=== PATIENT | female | born 1965 | race Caucasian/White ===

== ENCOUNTER → 2016-11-02 | Outpatient (CLI) | payer OTHER ==
[~2016-11-02] MED LIST: ADVIN50/60 INH; CHOL2000 PO; DEXT30TA7 PO; FEXO1TAB49 PO; IBUP-1050 PO; IPRASOL4 INH; MOME50SP5; MONT1TAB3 PO; MULTTAB58 PO; PREG1CAP28 PO; PSEU30TA20 PO
--- NOTE | 2016-11-02 09:43 | DIAGNOSTIC IMAGING REPORT ---
RIGHT FOOT MIN 3 VIEWS ROUTINE CLINICAL HISTORY: Right foot pain COMPARISON: None. DISCUSSION: There is an equivocal age-indeterminate fracture of the distal phalanx the fifth toe. There are no dislocations. There are no other findings of significance. IMPRESSION: Equivocal age-indeterminate fracture of the distal phalanx of the fifth toe Electronically signed by: Storm Joiner M.D. 11/02/2016 9:42 AM Dictated Date/Time: 11/02/2016 9:39 AM
== END | disposition home or self-care (01) ==
LOC: C.RADPV 09:25
PROVIDERS: ATTEND Neuromusculoskeletal Medicine & OMM
DX: S92.531A Displaced fracture of distal phalanx of right lesser toe(s), initial encounter for closed fracture (principal); X58.XXXA Exposure to other specified factors, initial encounter

== ENCOUNTER → 2017-01-06 | Outpatient (CLI) | payer OTHER | END | disposition home or self-care (01) | LOC: C.LABPVFM 07:54 | PROVIDERS: ATTEND Nurse Practitioner | DX: Z13.220 Encounter for screening for lipoid disorders (principal); Z13.1 Encounter for screening for diabetes mellitus ==

== ENCOUNTER → 2017-01-07 | Outpatient (CLI) | payer OTHER ==
--- NOTE | 2017-01-07 14:06 | MAMMOGRAPHY REPORT ---
BILATERAL DIGITAL SCREENING MAMMOGRAM TOMOSYNTHESIS WITH CAD: 01/07/2017 CLINICAL HISTORY: Routine screening. Patient has no complaints. TECHNIQUE: Breast tomosynthesis in addition to standard 2D mammography was performed. Current study was also evaluated with a Computer Aided Detection (CAD) system. COMPARISON: Comparison is made to exams dated: 12/18/2015 mammogram, 06/06/2014 ultrasound, 12/12/2014 mammogram, 06/06/2014 mammogram, 10/31/2013 mammogram, and 10/27/2012 mammogram - [facility] enter. BREAST COMPOSITION: The tissue of both breasts is extremely dense, which lowers the sensitivity of m ammography. FINDINGS: No suspicious masses, calcifications, or areas of architectural distortion are noted in ei ther breast. There has been no significant interval change compared to prior exams. IMPRESSION: ACR BI-RADS CATEGORY 1: NEGATIVE There is no mammographic evidence of malignancy. A 1 year screening mammogram is recommended. The pa tient will receive written notification of the results. Approximately 10% of breast cancers are not detected with mammography. A negative mammographic report should not delay biopsy if a clinically suggestive mass is present. Evon Veronica M.D. ah/:01/07/2017 12:50:50 [employer]ire Debeader: Mariana POONR, M, [facility] letter sent: Normal 1/2 BI-RADS Code: ACR BI-RADS Category 1: Negative
== END | disposition home or self-care (01) ==
LOC: C.MAMM 11:21
PROVIDERS: ATTEND Surgery
DX: Z12.31 Encounter for screening mammogram for malignant neoplasm of breast (principal)

== ENCOUNTER → 2017-03-19 | Outpatient (CLI) | payer OTHER ==
[2017-03-19 17:27] LABS: BASO % 0.5 %; BASO ABS # 0.03 K/uL (0-0.2); COMPLETE YES; HEMATOCRIT 40.6 % (37-47); IG% 0.2 %; LYMPH % 36.1 %; LYMPH ABS # 2.16 K/uL (1.2-3.4); MEAN CELL VOLUME 86.6 fL (80-100); MEAN CORPUSCULAR HGB CONC 33.5 g/dl (32-36); MEAN PLATELET VOLUME 11.7 fL (7.4-10.4); MONO % 10.7 %; NEUT % 50.5 %; PLATELET COUNT 170 K/uL (130-400); RED BLOOD COUNT 4.69 M/uL (4.2-5.4); WHITE BLOOD COUNT 5.98 K/uL (4.8-10.8)
[2017-03-19 17:36] LABS: BLOOD UREA NITROGEN 16 mg/dl (7-18); BUN/CREATININE RATIO 20.7 (10-20); CALCIUM 8.7 mg/dl (8.5-10.1); CARBON DIOXIDE 30 mmol/L (21-32); CHLORIDE 108 mmol/L (98-107); CREATININE 0.79 mg/dl (0.60-1.20); GLUCOSE 104 mg/dl (70-99); POTASSIUM 3.6 mmol/L (3.5-5.1); SODIUM 144 mmol/L (136-145)
== END | disposition home or self-care (01) ==
LOC: C.LABPVFM 12:32
PROVIDERS: ATTEND Nurse Practitioner Family
DX: R10.31 Right lower quadrant pain (principal)

== ENCOUNTER → 2017-03-22 | Outpatient (CLI) | payer OTHER ==
--- NOTE | 2017-03-22 16:40 | DIAGNOSTIC IMAGING REPORT ---
ABDOMEN LIMITED (US) HISTORY: Pain R10.31 Abdominal pain, RLQ (right lower quadrant)attn. Appendix. COMPARISON: None. FINDINGS: Attention to the right lower quadrant does not identify the appendix. No localized collection is appreciated. IMPRESSION: Nondiagnostic study of the appendix The above report was generated using voice recognition software. It may contain grammatical, syntax or spelling errors. Electronically signed by: Jose Zhu M.D. 03/22/2017 4:39 PM Dictated Date/Time: 03/22/2017 4:38 PM
== END | disposition home or self-care (01) ==
LOC: C.ULTR 14:58
PROVIDERS: ATTEND Nurse Practitioner Family
DX: R10.31 Right lower quadrant pain (principal)

== ENCOUNTER → 2017-05-20 | Outpatient (CLI) | payer OTHER ==
--- NOTE | 2017-05-20 13:48 | MAMMOGRAPHY REPORT ---
ULTRASOUND OF RIGHT BREAST: 05/20/2017 CLINICAL HISTORY: The patient reports a palpable lump in her right axillary region since last week. She notes that it may possibly be smaller in size than when she first felt it. She denies any associ ated skin erythema, significant pain, or other complaints. COMPARISON: Comparison is made to exams dated: 01/07/2017 mammogram, 12/18/2015 mammogram, 12/12/2014 m ammogram, 06/06/2014 ultrasound, and 10/31/2013 mammogram - [facility]. TECHNIQUE: Real-time targeted ultrasound of the right axilla was performed. FINDINGS: Real-time, high resolution targeted ultrasound was performed of the area of the palpable l ump pointed out by the patient in the right axillary region. The patient could not pinpoint the exac t location of the lump but pointed to the general region. Ultrasound of this region demonstrates no suspicious masses or other suspicious sonographic abnormalities. Morphologically normal right axilla ry lymph nodes were seen during the exam, without evidence of axillary adenopathy. IMPRESSION: ACR BI-RADS CATEGORY 2: BENIGN No suspicious mass or other sonographic abnormality at the site of the palpable right axillary lump. There is no sonographic evidence of malignancy. Recommend clinical follow-up for the palpable axill sri lump; any decision to biopsy should be based on clinical grounds. Also recommend routine bilater al screening mammograms which are due December 2017. The patient was verbally notified of the results. Evno Veronica M.D. ah/:05/20/2017 09:57:11 Attending Technologist: Andre POON(R)(M), [facility] Government Instructor: Evon Veronica MD, [facility] letter sent: Normal 1/2 BI-RADS Code: ACR BI-RADS Category 2: Benign
== END | disposition home or self-care (01) ==
LOC: C.MAMM 09:23
PROVIDERS: ATTEND Nurse Practitioner Family
DX: N63.10 Unspecified lump in the right breast, unspecified quadrant (principal)

== ENCOUNTER → 2017-08-30 | Outpatient (CLI) | payer OTHER ==
--- NOTE | 2017-08-30 11:24 | DIAGNOSTIC IMAGING REPORT ---
CHEST 2 VIEWS ROUTINE CLINICAL HISTORY: Asthma. Persistent cough. COMPARISON STUDY: Chest radiograph August 19, 2014. FINDINGS: Lung volumes are normal. No pneumothorax or pleural effusion is noted. There is no consolidation or evidence for pulmonary edema. Cardiomediastinal silhouette is normal. Mild asymmetric right apical opacity reflects scarring. This is unchanged. IMPRESSION: No acute cardiopulmonary findings. Electronically signed by: Thiago Arias M.D. 08/30/2017 11:22 AM Dictated Date/Time: 08/30/2017 11:21 AM
== END | disposition home or self-care (01) ==
LOC: C.RADPV 10:45
PROVIDERS: ATTEND Nurse Practitioner
DX: J45.909 Unspecified asthma, uncomplicated (principal); R05 Cough

== ENCOUNTER → 2017-09-29 | Outpatient (CLI) | payer OTHER | END | disposition home or self-care (01) | LOC: C.LABPVFM 08:36 | PROVIDERS: ATTEND Nurse Practitioner Family | DX: Z13.220 Encounter for screening for lipoid disorders (principal); Z13.1 Encounter for screening for diabetes mellitus ==

== ENCOUNTER 2019-01-13 09:30 | Inpatient (IN) ==
[2019-01-13] MEDS ORDERED: METOCLOPRAMIDE HCL INJ 5 MG/ML 2 ML VIAL IV PRN ×2 (11:53→18:06)
[2019-01-13] MEDS ORDERED: MoRPHine SULFATE 2 MG/ML CARP IV PRN (12:03)
[2019-01-13] MEDS ORDERED: FEXOFENADINE HCL 180 MG TAB PO PRN (12:04)
[2019-01-13] MEDS ORDERED: ALBUTEROL 0.083% NEBU SOLN 3 ML VIAL INH PRN (12:04)
[2019-01-13] MEDS ORDERED: LORATADINE 10 MG TAB PO PRN (12:04)
[2019-01-13] MEDS ORDERED: MONTELUKAST SODIUM 10 MG TABLET PO PRN (12:04)
[2019-01-13] MEDS ORDERED: METHOCARBAMOL 750 MG TABLET PO PRN (12:04)
[2019-01-13] MEDS ORDERED: ALBUT/IPRATROP 3MG/0.5MG NEB 3 ML VIAL INH PRN (12:04)
[2019-01-13] MEDS ORDERED: FLUTICASONE/SALMETEROL (ADVAIR) 500/50 INH 14 PUFF INH PRN (12:04)
[2019-01-13] MEDS ORDERED: BROMELAINS 500 MG PO SCH (12:15)
--- NOTE | 2019-01-13 12:30 | History & Physical Report ---
Date of Service January 13, 2019 Assessment & Plan (1) Cat bite: Patient appears to have an abscess of her right hand from a cat bite 4 days ago. Surgical intervention was recommended. She does agree to proceed with surgery and is scheduled for an incision and drainage of her right hand lee Cole [facility] on January 13, 2019. She did have breakfast this morning but has been instructed to be nothing by mouth. We will obtain an EKG upon her admission at the hospital.Risks and complications of the procedure were extended the patient and include but are not limited to infection, pain, bleeding, scarring, nerve and blood vessel damage, wound problems, weakness, stiffness, incomplete relief of symptoms, recurrent procedures, blood clots, embolisms, heart attack, stroke and . All questions were answered and informed consent was obtained. She does not need any preoperative medical clearance. A well-padded splint was applied to her right upper extremity. Encouraged ice and elevation. No use of her right hand. She will be admitted and started on IV antibiotics. Surgery will be later today. All questions were answered. Present on Admission?: Yes History of Present Illness Chief Complaint: right hand pain x 4 days Primary Care Provider: Dr. Tammy Thayer Patient is a 53-year-old female who is here today to see Dr. Ingram with complaints of right hand pain and swelling. She was bitten by Her own cat on January 09, 2019. She states her right hand has progressively gotten more painful and red and swollen since that day. She is right-hand dominant. She denies any previous problems or injuries to her right hand. She was scheduled for deep tissue breast reconstruction yesterday with her plastic surgeon due to the looks of her right hand he decided to postpone surgery and recommended her seeing an orthopedic surgeon. She called him is scheduled for an appointment today. She did get some IV Unasyn from them yesterday. She is also been taking by mouth Bactrim and Augmentin. She states she continues staff pain and swelling. She describes her pain as a burning type pain. She states that 10/10. She is pain with any type of movement of her fingers. She said that they have her redness was traveling up her wrist and forearm but that has gotten improved since the antibiotics. She has been icing and elevating. She denies any other injuries except that she has a couple scratches on her left hand from her cat as well. They are not symptomatic at this time. She was seen and evaluated today by our surgeons and an urgent incision and drainage was recommended. She will be admitted to [facility] and plan for incision and drainage of her right hand abscess with Dr. Cole this afternoon. Allergies Allergy/AdvReac Type Severity Reaction Status Date / Time Cipro Allergy Unknown HIVES Verified 07/20/15 08:52 ciprofloxacin Allergy Unknown HIVES Verified 01/10/19 10:51 Penicillins Allergy Unknown Hives Verified 01/10/19 10:51 pollen extracts Allergy Unknown "SEASONAL Verified 01/10/19 10:51 ALLERGIES" Quinolones Allergy Unknown PER DR Verified 01/10/19 10:51 BARTER,HAS TAKEN LEVAQUIN W/O PROBLEM doxycycline AdvReac Verified 01/10/19 10:51 Home Medications Home Medications Medication Instructions Recorded Confirmed Type cholecalciferol (vitamin D3) 2,000 unit PO QPM 03/31/18 01/10/19 History dextromethorphan-guaifenesin 1 tab PO Q12H PRN 03/31/18 01/10/19 History [Mucinex DM] fexofenadine [Ryanne Allergy] 180 mg PO DAILY PRN 03/31/18 01/10/19 History ibuprofen 800 mg PO Q8H PRN #30 tab 03/31/18 01/10/19 Rx ipratropium-albuterol 3 ml INHALATION QID PRN 03/31/18 01/10/19 History methocarbamol 750 mg PO QPM PRN 03/31/18 01/10/19 History montelukast [Singulair] 10 mg PO PM PRN 03/31/18 01/10/19 History albuterol sulfate 2.5 mg/3 mL 2.5 mg INH .COMPLEX PRN #75 ml 12/15/18 01/10/19 Rx (0.083 %) solution for nebulization albuterol sulfate 90 mcg/actuation 1 puffs INH .COMPLEX #1 ea 12/15/18 01/10/19 Rx breath activated powder inhaler ascorbate calcium (vitamin C) 500 500 mg PO DAILY #30 tab 12/15/18 01/10/19 Rx mg tablet clindamycin phosphate 1 % topical 1 appln TOP DAILY #30 ml 12/15/18 01/10/19 Rx solution fluticasone 500 mcg-salmeterol 50 1 puffs INH BID PRN #14 ea 12/15/18 01/10/19 Rx mcg/dose blistr powdr for inhalation gabapentin 300 mg capsule 300 mg PO TID #90 cap 12/15/18 01/10/19 Rx loratadine 10 mg tablet 10 mg PO DAILY PRN #30 tab 12/15/18 01/10/19 Rx multivitamin tablet 1 tab PO DAILY #30 tab 12/15/18 01/10/19 Rx bromelains 500 mg tablet 500 mg PO .COMPLEX 12/16/18 01/10/19 History vitamin A 8,000 unit capsule 8,000 units PO DAILY 12/16/18 01/10/19 History amoxicillin 875 mg-potassium 1 tab PO Q12H #20 tab 01/10/19 01/10/19 Rx clavulanate 125 mg tablet miconazole nitrate [Monistat 7] VAGINAL DAILY 01/13/19 History mupirocin 1 applic TOPICAL BID 01/13/19 01/13/19 History sulfamethoxazole-trimethoprim 1 tab PO Q12H 01/13/19 01/13/19 History [Bactrim DS] Past Med/Surg History Medical History [place] teeth extracted H/O: hysterectomy Bronchospasm with bronchitis, acute (Acute) Headache (Acute) Otalgia of left ear (Acute) URI (upper respiratory infection) (Acute) Acne Asthma Auditory processing disorder BRCA2 gene mutation positive Bronchitis Fibromyalgia 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 Meniere's disease Optic neuritis Osteoarthritis Pneumonia Syringomyelia Surgical History S/P discectomy S/P spinal surgery H/O arthroscopic knee surgery H/O bilateral mastectomy H/O inguinal hernia repair H/O laparoscopy H/O umbilical hernia repair History of mandibular surgery Social History Preferred Language: Greek current occupational status: employed Feels Safe at Home: Yes Smoking Status: Never smoker Review of Systems Constitutional: no fever, no chills, no sweats, no weight loss and no weight gain Eyes: no blind spots, no dry eyes and no itchy eyes Ear, Nose, Mouth, Throat: + dizziness; no ear pain, no tinnitus, no hearing loss, no facial pain, no sinus pain/pressure, no dental pain and no sore throat Respiratory: no cough, no dyspnea, no dyspnea on exertion and no wheezing Cardiovascular: + chest pain (2 episodes of mild chest pain this morning; lasted for seconds, resolved at this time, things it's from her "spacer shifting". ) and + edema (right hand); no chest pain with activity, no radiating jaw, neck or arm pain, no palpitations, no lightheadedness, no syncope and no calf pain Gastrointestinal: + nausea (from pain) and + diarrhea/loose stools (from antibiotic usage); no abdominal pain, no vomiting, no pain with swallowing and no constipation Genitourinary: + vaginal discharge (current vaginal yeast infection), + vaginal odor and + vaginal itching; no dysuria, no difficulty urinating, no urinary frequency, no urinary hesitancy and no urinary incontinence Musculoskeletal: + joint pain and + swelling (right hand); no back pain, no radicular pain and no deformity Integumentary: + skin swelling Neurologic: no gait abnormality, no unsteadiness, no tingling, no numbness and no headache(s) Endocrine: no cold intolerance and no heat intolerance Hematologic / Lymphatic: no easy bleeding, no easy bruising, no coagulopathy and no lymphadenopathy Physical Exam Musculoskeletal: Head/Neck/Chest: normocephalic, head atraumatic and neck supple Extremities: strength 5/5 throughout; no muscle atrophy Gait: normal gait She has 2 puncture bui, one in between her third and fourth fingers and at the base in between of her second and third metacarpals. She is localized edema and erythema. She is point tender with palpation. She has no pain with palpation of the DIP or PIP joints. She does have pain with flexion and extension of her right hand. She tolerates gentle range of motion of her right wrist. Distal sensation is normal. Distal pulses are 2+. She is nontender throughout her forearm. She has full pronation and supination and elbow flexion and extension. She has multiple ink bui on her right upper extremity and wear she was marking the redness. It has regressed since her last marking yesterday. She has point tenderness and some fluctuance the dorsum of her hand between the second and third metacarpals suggested an abscess. Skin: no rashes, warm and dry + skin tightening and + wound (To cat bite puncture wounds); no subcutaneous nodules Trauma: + evidence of skin trauma; no laceration, no contusion and no hematoma Neurologic: PERRL, EOMI, accommodation nl, no face palsy, no dysarthria Psychiatric: A+Ox3, euthymic affect Lymphatic: no lymphadenopathy, no lymphedema, no cervical lymphadenopathy and no axillary lymphadenopathy Results & Data Vital Signs (Past 12 Hours) Temperature 36.9 Blood pressure 118/74 Pulse 87 Oxygenation on room air 97% Pain score 10/10 Height 169.8 cm Weight 85.3 kg Diagnostic Findings Radiology images: 3 views of her right hand AP, oblique and lateral view show evidence of soft tissue swelling. There is no bony abnormality or evidence of foreign body. Code Status & VTE Plan VTE Prophylaxis Plan VTE Prophylaxis will be ordered: No
[2019-01-13] MEDS ORDERED: PROPOFOL IV EMULSION 10 MG/ML 20 ML VIAL IV ONE (15:50)
[2019-01-13] MEDS ORDERED: fentaNYL citrate 100 MCG/2 ML VIAL ONE (15:50)
[2019-01-13] MEDS ORDERED: DEXAMETHASONE SOD INJ 4 MG/ML VIAL ONE (15:50)
[2019-01-13] MEDS ORDERED: ONDANSETRON INJ 2 MG/ML 2 ML VIAL ONE (15:50)
[2019-01-13] MEDS ORDERED: LIDOCAINE HCL 2% 2 ML VIAL/AMP(20MG/ML) INFIL ONE (15:50)
[2019-01-13] MEDS ORDERED: MIDAZOLAM HCL 1 MG/ML 2ML VIAL ONE (15:50)
[2019-01-13] MEDS ORDERED: LIDOCAINE HCL 1% 20 ML VIAL ONE (16:09)
[2019-01-13] MEDS ORDERED: BACITRACIN INJ 50,000 UNIT VIAL ONE (16:09)
[2019-01-13] MEDS ORDERED: BUPIVACAINE 0.5 % 5 MG/1 ML MPF 30ML VIAL ONE (16:09)
[2019-01-13] MEDS: AMPICILLIN/SULBACTAM SOD 3,000 MG in 0.9 % SODIUM CHLORIDE 100 ML IV SCH ×2 (16:12→21:29)
[2019-01-13] MEDS ORDERED: ePHEDrine sulfate 50 MG/ML AMP IV PRN ×2 (16:22→16:45)
[2019-01-13] MEDS ORDERED: HYDROmorphone INJ 1 MG/ML SYRINGE IV PRN (16:22)
[2019-01-13] MEDS ORDERED: ATROPINE SULFATE 0.1 MG/ML 10ML SYR IV PRN ×2 (16:22→16:45)
[2019-01-13] MEDS ORDERED: ONDANSETRON INJ 2 MG/ML 2 ML VIAL IV PRN ×3 (16:22→18:06)
--- NOTE | 2019-01-13 16:28 | Anesthesiology Consultation ---
Date of Service January 13, 2019 Assessment & Plan (1) Encounter for pre-operative examination: Chart Review Chart Review: Acceptable Risk for Surgery and Patient NOT seen in Pre Admission Testing Consults Requested none ASA ASA2 Proposed Anesthesia Anesthesia Type: General Risk / Benefits Reviewed With: PT / POA / Parent / Guardian, Accepts Plan and Informed Consent Obtained History Surgery Operation Date: 01/13/19 09:30 Proposed Procedures p Right Hand Incision and Drainage - Justin Cole MD Height/Weight Height: 5 ft 7 in Weight: 83.6 kg Allergies Allergy/AdvReac Type Severity Reaction Status Date / Time Cipro Allergy Unknown HIVES Verified 07/20/15 08:52 ciprofloxacin Allergy Unknown HIVES Verified 01/10/19 10:51 Penicillins Allergy Unknown Hives Verified 01/10/19 10:51 pollen extracts Allergy Unknown "SEASONAL Verified 01/10/19 10:51 ALLERGIES" Quinolones Allergy Unknown PER DR Verified 01/10/19 10:51 BARTER,HAS TAKEN LEVAQUIN W/O PROBLEM doxycycline AdvReac Verified 01/10/19 10:51 Medications Home Medications Medication Instructions Recorded Confirmed Last Taken cholecalciferol (vitamin D3) 2,000 unit PO QPM 03/31/18 01/10/19 Unknown dextromethorphan-guaifenesin 1 tab PO Q12H PRN 03/31/18 01/10/19 Unknown [Mucinex DM] fexofenadine [Ryanne Allergy] 180 mg PO DAILY PRN 03/31/18 01/10/19 Unknown ibuprofen 800 mg PO Q8H PRN #30 tab 03/31/18 01/10/19 Unknown ipratropium-albuterol 3 ml INHALATION QID PRN 03/31/18 01/10/19 Unknown methocarbamol 750 mg PO QPM PRN 03/31/18 01/10/19 Unknown montelukast [Singulair] 10 mg PO PM PRN 03/31/18 01/10/19 Unknown albuterol sulfate 2.5 mg/3 mL 2.5 mg INH .COMPLEX PRN #75 ml 12/15/18 01/10/19 Unknown (0.083 %) solution for nebulization albuterol sulfate 90 mcg/actuation 1 puffs INH .COMPLEX #1 ea 12/15/18 01/10/19 Unknown breath activated powder inhaler ascorbate calcium (vitamin C) 500 500 mg PO DAILY #30 tab 12/15/18 01/10/19 Unknown mg tablet clindamycin phosphate 1 % topical 1 appln TOP DAILY #30 ml 12/15/18 01/10/19 Unknown solution fluticasone 500 mcg-salmeterol 50 1 puffs INH BID PRN #14 ea 12/15/18 01/10/19 Unknown mcg/dose blistr powdr for inhalation gabapentin 300 mg capsule 300 mg PO TID #90 cap 12/15/18 01/10/19 Unknown loratadine 10 mg tablet 10 mg PO DAILY PRN #30 tab 12/15/18 01/10/19 Unknown multivitamin tablet 1 tab PO DAILY #30 tab 12/15/18 01/10/19 Unknown bromelains 500 mg tablet 500 mg PO .COMPLEX 12/16/18 01/10/19 Unknown vitamin A 8,000 unit capsule 8,000 units PO DAILY 12/16/18 01/10/19 Unknown amoxicillin 875 mg-potassium 1 tab PO Q12H #20 tab 01/10/19 01/10/19 Unknown clavulanate 125 mg tablet miconazole nitrate [Monistat 7] VAGINAL DAILY 01/13/19 01/13/19 07:00 mupirocin 1 applic TOPICAL BID 01/13/19 01/13/19 Unknown sulfamethoxazole-trimethoprim 1 tab PO Q12H 01/13/19 01/13/19 01/13/19 07:00 [Bactrim DS] Active Medications Generic Name Dose Route Start Last Admin Trade Name Freq PRN Reason Stop Dose Admin Ampicillin Sodium/Sulbactam 108 mls @ 200 mls/hr 01/13/19 16:00 01/13/19 16:12 Sodium 3,000 mg/ Sodium IV 01/27/19 15:59 200 mls/hr Chloride Q6H VIKTOR Administration Protocol NPO Date Last Intake of Fluids: 01/13/19 Time Last Intake of Fluids: 07:30 Last Intake of Fluids Comment: coffee Date Last Intake of Solids: 01/13/19 Time Last Intake of Solids: 07:30 Last Intake of Solids Comment: eggs Past Medical History Medical History [place] teeth extracted H/O: hysterectomy Bronchospasm with bronchitis, acute (Acute) Headache (Acute) Otalgia of left ear (Acute) URI (upper respiratory infection) (Acute) Acne Asthma Auditory processing disorder BRCA2 gene mutation positive Bronchitis Fibromyalgia 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 Past Family History Family History Mother Diabetes Grandfather Heart disease Brother Hypertension Past Surgical History Surgical History S/P discectomy S/P spinal surgery H/O arthroscopic knee surgery H/O bilateral mastectomy H/O inguinal hernia repair H/O laparoscopy H/O umbilical hernia repair History of mandibular surgery Past Anesthesia History Other History of low blood pressure History of PONV History of PONV (One time) and Hx of Motion Sickness Social History Smoking Status: Never smoker Hx Alcohol Use: No Hx Substance Use: No Review of Systems Positive for GERD currently Negative for chest pain or shortness of breath. Physical Exam Vital Signs Last Vital Signs Temp 36.8 C 01/13/19 15:49 Pulse 70 01/13/19 15:49 Resp 16 01/13/19 15:49 BP 146/84 H 01/13/19 15:49 Pulse Ox 98 01/13/19 15:49 Constitutional not obese ENMT Mouth: no TMJ abnormality and oral opening not small Thyromental Distance: > or= 3.5 Finger Breadths Mallampati Class: II Mouth / Teeth: 1. Implants 2. Capped Neck normal visual inspection; neck extension not limited Respiratory normal respiratory effort Auscultation: lungs clear to auscultation bilaterally Cardiovascular Rate/Rhythm: regular rate and regular rhythm Heart Sounds: no murmur Neurologic moves all extremities Psychiatric Orientation: alert and oriented x 3
[2019-01-13] MEDS ORDERED: ALBUTEROL HFA 8 GM INHALER INH PRN (16:30)
[2019-01-13] MEDS ORDERED: PROMETHAZINE HCL 12.5 MG in SODIUM CHLORIDE 0.9% 50 ML IV PRN (16:45)
[2019-01-13] MEDS ORDERED: fentaNYL citrate 100 MCG/2 ML VIAL IV PRN (16:45)
--- NOTE | 2019-01-13 17:57 | Operative Report ---
Post Operative Report Pre & Post Diagnosis Operation Date: 01/13/19 09:30 Pre-Op Diagnosis: Cat bite, right septic hand Post-Op Diagnosis: Cat bite, right septic hand, webspace infection of the right hand between the ring and long finger. Possible violation of the ring finger metacarpophalangeal joint. Procedure Operation Date: 01/13/19 09:30 Actual Procedures p Right Hand Incision and Drainage(Right) - Justin Cole MD Surgeon Justin Cole MD Sight Effects Specialist Arianna Cronin Estimated Blood Loss 5 Findings Consistent with Post-Op Diagnosis Specimens Cultures x2 1 from the soft tissue superficial and the second from the ring finger metacarpal phalangeal joint Drains Quarter inch Ancram drain Anesthesia Type General Complications none Disposition Accompanied Patient To Recovery: No Disposition: Recovery Room Indications Patient was bit by cat several days ago. She has progressive right hand pain and swelling. Refractory to oral and outpatient IV antibiotics. Suspicion of a small abscess 1 of the puncture wounds. She is most suitable for I&D under general anesthetic in the operating room. Moderate concern for joint sepsis. Description of Procedure Informed consent obtained. Patient identified. She identified the hand as the operative site right side which I marked with my initials. Preprocedural timeou t performed. Preop dose of IV antibiotics. She was positioned supine with the right arm on a hand table general anesthetic was administered. Tourniquet on the right arm. There was swelling centered between the ring and long finger metacarpophalangeal joints with a puncture wound there. Perhaps some small fluctuance. Another puncture wound on the opposite side of the dorsal ring finger MCP joint which was more benign in appearance. She had full passive range of motion of the fingers. There were no volar findings. DVT prophylaxis with early mobility. Limb exsanguinated with gravity. A zigzag incision was made apex radial at the site of the cat bite. Skin incised and blunt dissection was performed down through subcutaneous tissues. No lou purulence was noted but some cloudy flu id was identified and cultured. A hemostat was inserted into the web space and there was no fluid noted. All of these areas were then copiously irrigated with sterile saline. A puncture wound in the extensor tendon was noted which matched precisely with the skin puncture. I then went ahead and made a 1 cm arthrotomy on the radial side of the metacarpal phalangeal joint bluntly dissected down i nto the joint. No pathological fluid or purulence was noted. The joint was also irrigated. Total 500 cc was utilized. Tourniquet was let down and meticulous hemostasis was performed. 0.5% Marcaine 1% lidocaine were utilized for a dorsal cutaneous ulnar nerve block ulnar nerve block and carpal tunnel block as well as injection around the incision site. Quarter inch Francisco drain was inserted and brought out the apex. The incision was then closed loosely with 4-0 nylon. A bulky soft sterile dressing Xeroform 4 x 4's fluffs between the fingers ABD cast padding and a volar resting hand spl int were applied. Patient is awake from anesthesia without difficulty taken to recovery in stable condition. I took cultures from both the superficial tissue as well as the joint. Counts were correct blood loss was 10 cc. No complications. At the conclusion the operation spoke patient's and informed him of my findings and postoperative instructions were given. She will be admitted to the hospital elevated pain control intravenous antibiotics. Pulled drain out 24 to 48 hours. I attest to the content of the Intraoperative Record and any orders documented therein. Any exceptions are noted below.
[2019-01-13 18:00] LABS: Pregnancy Test, Urine Negative (Negative)
[2019-01-13] MEDS ORDERED: MAGNESIUM HYDROXIDE SUSP 30 ML UDC PO PRN (18:06)
[2019-01-13] MEDS ORDERED: DiphenhydrAMINE HCL 50 MG/ML VIAL IV PRN (18:06)
[2019-01-13] MEDS ORDERED: BISACODYL 10 MG SUPP PR PRN (18:06)
[2019-01-13] MEDS ORDERED: NALOXONE HCL 0.4 MG/1 ML VIAL/CARP IV PRN (18:06)
[2019-01-13] MEDS ORDERED: ACETAMINOPHEN 500 MG TAB PO PRN (18:06)
--- NOTE | 2019-01-13 18:06 | Operative Report ---
Post Operative Report Pre & Post Diagnosis Operation Date: 01/13/19 09:30 Pre-Op Diagnosis: Cat bite, right septic hand Post-Op Diagnosis: Cat bite, right septic hand Procedure Operation Date: 01/13/19 09:30 Actual Procedures p Irrigation and debridement of right hand and cultures(Right) - Justin Cole MD Surgeon Justin Cole MD Plant Attendant Or Assistant Operator Arianna Cronin Estimated Blood Loss 5 Findings Consistent with Post-Op Diagnosis Specimens would culture Complications none Indications See Dr Cole operative report for full details Description of Procedure See Dr Cole operative report for full details. I was wheelchair van operator first responder during entire case to include prepping, draping, limb and instrument handling, wound closure, dressings, splint application. I attest to the content of the Intraoperative Record and any orders documented therein. Any exceptions are noted below.
[2019-01-13] MEDS: fentaNYL citrate 100 MCG/2 ML VIAL IV PRN ×2 (18:09→18:14)
[2019-01-13] MEDS: HYDROmorphone INJ 1 MG/ML SYRINGE IV PRN ×2 (18:20→18:25)
--- NOTE | 2019-01-13 18:34 | Anesthesiology Progress Note ---
Date of Service January 13, 2019 Anesthesia Post Procedure Vital Signs Vital Signs: Temp Pulse Pulse Resp BP BP Pulse Ox 01/13/19 18:25 78 22 141/75 H 98 01/13/19 18:15 82 16 156/80 H 100 01/13/19 18:05 85 16 149/74 H 100 01/13/19 17:55 36.4 C L 97 H 13 142/83 H 100 01/13/19 15:49 36.8 C 70 16 146/84 H 98 01/13/19 15:33 37.4 C 79 20 143/81 H 99 01/13/19 13:49 99 H 16 161/89 H 98 Pain Intensity Right Hand: Pain Intensity: 6 Transfer of Care Handoff Completed per policy Notes Mental Status: alert / awake / arousable and participated in evaluation Patient Amnestic to Procedure: Yes Nausea / Vomiting: adequately controlled Pain: adequately controlled Airway Patency, RR, SpO2: stable & adequate BP & HR: stable & adequate Hydration State: stable & adequate Anesthetic Complications: no major complications apparent and Pt Satisfied with anesthetic care
[2019-01-13] MEDS: GABAPENTIN 300 MG CAP PO SCH ×2 (19:47→20:33)
[2019-01-13] MEDS: D5W AND 1/2NSS 1,000 ML IV SCH (19:47)
[2019-01-13] MEDS: ONDANSETRON INJ 2 MG/ML 2 ML VIAL IV PRN (20:14)
[2019-01-13] MEDS: CHOLECALCIFEROL 1,000 UNITS TAB PO SCH (20:33)
[2019-01-13] MEDS: DOCUSATE SODIUM 100 MG CAP PO SCH (20:33)
[2019-01-13] MEDS: MUPIROCIN 2% OINT 22 GM TUBE EXT SCH (20:33)
[2019-01-13] MEDS: SENNA 8.6 MG TAB PO SCH (20:33)
[2019-01-13] MEDS ORDERED: MUPIROCIN 2% TOP SCH (21:00)
[2019-01-13] MEDS: SODIUM CHLORIDE 0.9% 1000ML 1,000 ML IV SCH (21:29)
[2019-01-13] MEDS: KETOROLAC 30 MG/ML VIAL IV PRN (22:33)
[2019-01-14] MEDS: AMPICILLIN/SULBACTAM SOD 3,000 MG in 0.9 % SODIUM CHLORIDE 100 ML IV SCH ×4 (03:59→21:42)
[2019-01-14] MEDS: OXYCODONE HCL IR 5 MG TAB (IMMEDIATE RELEASE) PO PRN ×2 (04:12→08:23)
[2019-01-14] MEDS: SODIUM CHLORIDE 0.9% 1000ML 1,000 ML IV SCH (04:52)
[2019-01-14] MEDS: MULTIVITAMIN TAB PO SCH (08:24)
[2019-01-14] MEDS: ASCORBIC ACID 500 MG TAB PO SCH (08:24)
[2019-01-14] MEDS: GABAPENTIN 300 MG CAP PO SCH ×3 (08:25→21:01)
[2019-01-14] MEDS: MUPIROCIN 2% OINT 22 GM TUBE EXT SCH ×2 (08:25→21:02)
[2019-01-14] MEDS: DOCUSATE SODIUM 100 MG CAP PO SCH ×2 (08:26→21:04)
[2019-01-14] MEDS ORDERED: MULTIVITAMIN TAB PO SCH (09:00)
[2019-01-14] MEDS ORDERED: NON-FORMULARY MEDICATION (Vitamin A 8,000 UNITS) PO SCH (09:00)
[2019-01-14 09:13] LABS: Hematocrit (blood only) 32.8 % (37-47); Hemoglobin 10.9 g/dL (12.0-16.0); Mean Corpuscular Hgb Conc 33.2 g/dL (32-36); Mean Corpuscular Volume 87.9 fL (80-100); Mean Platelet Volume 10.3 fL (7.4-10.4); Platelet Count 206 K/uL (130-400); RDW Standard Deviation 45.7 fL (36.4-46.3); Red Blood Count 3.73 M/uL (4.2-5.4); White Blood Count 5.46 K/uL (4.8-10.8)
[2019-01-14 09:41] LABS: C Reactive Protein 3.36 mg/dl (0-0.29); Creatinine Clr Calc Pharmacy 88.1 ml/min; Est GFR (African American) 93.3; Est GFR (Non-African American) 80.5
[2019-01-14] MEDS: ONDANSETRON INJ 2 MG/ML 2 ML VIAL IV PRN ×2 (09:54→21:41)
[2019-01-14] MEDS: KETOROLAC 30 MG/ML VIAL IV PRN (09:54)
[2019-01-14] MEDS: D5W AND 1/2NSS 1,000 ML IV SCH (10:43)
[2019-01-14] MEDS ORDERED: Nursing to Pharmacy Communication ONE ×2 (11:12→13:39)
[2019-01-14] MEDS ORDERED: OXYCODONE/ACETAMINOPHEN 5mg/325mg TAB PO PRN (13:49)
[2019-01-14] MEDS: OXYCODONE/ACETAMINOPHEN 5mg/325mg TAB PO PRN ×2 (16:15→21:41)
--- NOTE | 2019-01-14 18:50 | Progress Note ---
DATE: 01/14/2019 Pain is much improved. She is afebrile. Her vital signs are stable. White count normal. Sed rate mildly elevated. C-reactive protein is elevated at 3.4. Cultures show many polys, no bacteria, no growth to date either from the wound culture or joint culture. Dressing is changed and the drain is pulled. She is able to wiggle her fingers with much less pain. There is less swelling and redness. There is less tenderness to touch. Her sensation is intact and she can straighten and bend her fingers slightly. IMPRESSION: Right hand infection secondary to cat bite. PLAN: Continue the Unasyn. Pain medication. Elevation. She is redressed with a bulky hand dressing and a splint is removed. Dr. Knight will be around tomorrow to check on her as I will be out of town. I will be back Wednesday to change her dressing and hopefully if she is doing well, discharge at that time.
[2019-01-14] MEDS: CHOLECALCIFEROL 1,000 UNITS TAB PO SCH (21:02)
[2019-01-14] MEDS: SENNA 8.6 MG TAB PO SCH (21:05)
[2019-01-15] MEDS: ONDANSETRON INJ 2 MG/ML 2 ML VIAL IV PRN ×4 (05:22→22:32)
[2019-01-15] MEDS: AMPICILLIN/SULBACTAM SOD 3,000 MG in 0.9 % SODIUM CHLORIDE 100 ML IV SCH ×4 (05:22→22:32)
[2019-01-15] MEDS: OXYCODONE/ACETAMINOPHEN 5mg/325mg TAB PO PRN ×3 (05:35→19:58)
[2019-01-15] MEDS: D5W AND 1/2NSS 1,000 ML IV SCH (07:16)
[2019-01-15] MEDS: MUPIROCIN 2% OINT 22 GM TUBE EXT SCH ×2 (08:21→20:00)
[2019-01-15] MEDS: DOCUSATE SODIUM 100 MG CAP PO SCH ×2 (08:22→20:00)
--- NOTE | 2019-01-15 08:22 | Progress Note ---
DATE: 01/15/2019 SUBJECTIVE: She is alert, oriented this morning. New IV has been started. She has minimal complaints of pain. OBJECTIVE: Vital signs stable, blood pressure satisfactory. Temperature 36.7. No growth she had on wound cultures. ASSESSMENT: Status post cat bite, I and D, IV antibiotics. PLAN: We will have her up and ambulatory. Hopefully, home tomorrow with p.o. or IV antibiotics.
[2019-01-15] MEDS: MULTIVITAMIN TAB PO SCH (08:23)
[2019-01-15] MEDS: ASCORBIC ACID 500 MG TAB PO SCH (08:23)
[2019-01-15] MEDS: GABAPENTIN 300 MG CAP PO SCH ×3 (08:23→20:00)
[2019-01-15] MEDS: CHOLECALCIFEROL 1,000 UNITS TAB PO SCH (20:00)
[2019-01-15] MEDS: SENNA 8.6 MG TAB PO SCH (20:01)
[2019-01-16] MEDS: ONDANSETRON INJ 2 MG/ML 2 ML VIAL IV PRN ×2 (04:50→10:58)
[2019-01-16] MEDS: AMPICILLIN/SULBACTAM SOD 3,000 MG in 0.9 % SODIUM CHLORIDE 100 ML IV SCH ×2 (04:50→10:54)
--- NOTE | 2019-01-16 08:33 | Anesthesiology Progress Note ---
Date of Service January 16, 2019 Anesthesia Post Procedure Vital Signs Vital Signs: Temp Pulse Pulse Resp BP Pulse Ox 01/16/19 07:41 36.7 C 58 L 16 122/78 97 01/15/19 22:53 36.9 C 62 14 114/75 96 01/15/19 14:58 36.7 C 74 17 118/73 97 Pain Intensity Right Hand: Pain Intensity: 5 Notes Mental Status: alert / awake / arousable and participated in evaluation Patient Amnestic to Procedure: Yes Nausea / Vomiting: adequately controlled Pain: adequately controlled Airway Patency, RR, SpO2: stable & adequate BP & HR: stable & adequate Hydration State: stable & adequate Anesthetic Complications: no major complications apparent and Pt Satisfied with anesthetic care
[2019-01-16] MEDS: OXYCODONE/ACETAMINOPHEN 5mg/325mg TAB PO PRN (08:46)
[2019-01-16] MEDS: DOCUSATE SODIUM 100 MG CAP PO SCH (08:48)
[2019-01-16] MEDS: ASCORBIC ACID 500 MG TAB PO SCH (08:49)
[2019-01-16] MEDS: MULTIVITAMIN TAB PO SCH (08:49)
[2019-01-16] MEDS: GABAPENTIN 300 MG CAP PO SCH ×2 (08:49→13:39)
[2019-01-16] MEDS: MUPIROCIN 2% OINT 22 GM TUBE EXT SCH (08:49)
--- NOTE | 2019-01-16 09:30 | Progress Note ---
DATE: 01/16/2019 SUBJECTIVE: Pain is much improved. No problems are noted. OBJECTIVE: She is afebrile. Her vital signs are stable. The ring finger culture which I am presuming is the joint culture is growing out Pasteurella multocida. The hand culture is no growth to date. Dressing is changed. Pain is markedly improved. There is mild erythema present with no drainage. The apex of the flap is dusky. No drainage can be expressed. I can actually touch her hand now whereas previously that was not possible. There is swelling mostly involving the incisional area and the ring finger. She has intact movement, although limited in all fingers and most notably in the ring finger. She can hold all of her fingers extended and flexed perhaps 10-30%. Median, radial and ulnar motor and sensory functions are intact. At the time of the surgical procedure after the joint arthrotomy, the arthrotomy was left open and the extensor tendon was stable and did not subluxate. IMPRESSION: Pasteurella multocida infection of the right hand and possibly of the right ring finger metacarpophalangeal joint, status post cat bite. PLAN: Findings discussed. She is improved. She has had almost 72 hours of intravenous antibiotics. Discharge home today on oral Augmentin. Follow up with me in my office on Wednesday. If there are any problems with fevers, increased pain, redness, swelling or any other problems or questions, call my office or go to the Emergency Room. She will be discharged on anti-inflammatory as well as narcotic. Wiggle the fingers. A new bulky hand dressing is applied, she is to elevate and wiggle her fingers. Breast reconstructive surgery is recommended to be delayed for at least 2 weeks.
--- NOTE | 2019-01-16 09:39 | Discharge Summary ---
Date of Service January 16, 2019 Admission HPI Per Admitting Provider Patient is a 53-year-old female who is here today to see Dr. Ingram with complaints of right hand pain and swelling. She was bitten by Her own cat on January 09, 2019. She states her right hand has progressively gotten more painful and red and swollen since that day. She is right-hand dominant. She denies any previous problems or injuries to her right hand. She was scheduled for deep tissue breast reconstruction yesterday with her plastic surgeon due to the looks of her right hand he decided to postpone surgery and recommended her seeing an orthopedic surgeon. She called him is scheduled for an appointment today. She did get some IV Unasyn from them yesterday. She is also been taking by mouth Bactrim and Augmentin. She states she continues staff pain and swelling. She describes her pain as a burning type pain. She states that 10/10. She is pain with any type of movement of her fingers. She said that they have her redness was traveling up her wrist and forearm but that has gotten improved since the antibiotics. She has been icing and elevating. She denies any other injuries except that she has a couple scratches on her left hand from her cat as well. They are not symptomatic at this time. She was seen and evaluated today by our surgeons and an urgent incision and drainage was recommended. She will be admitted to [facility] and plan for incision and drainage of her right hand abscess with Dr. Cole this afternoon. Principal Diagnosis Right Hand Cat Bite Septic Discharge Data Allergies Allergy/AdvReac Type Severity Reaction Status Date / Time Cipro Allergy Unknown HIVES Verified 07/20/15 08:52 ciprofloxacin Allergy Unknown HIVES Verified 01/10/19 10:51 Penicillins Allergy Unknown Hives Verified 01/10/19 10:51 pollen extracts Allergy Unknown "SEASONAL Verified 01/10/19 10:51 ALLERGIES" Quinolones Allergy Unknown PER DR Verified 01/10/19 10:51 ODELL,HAS TAKEN LEVAQUIN W/O PROBLEM doxycycline AdvReac Verified 01/10/19 10:51 Consultations 01/13/19 11:58 Consult Case Management - Discharge Planning Routine 01/13/19 18:06 Consult Case Management - Discharge Planning Routine Procedures Performed Operation Date: 01/13/19 09:30 Actual Procedures p Irrigation and debridement of right hand and cultures(Right) - Justin Cole MD Hospital Course (1) Cat bite: 53 year old female patient was bit by cat several days ago. She has progressive right hand pain and swelling. Refractory to oral and outpatient IV antibiotics. Suspicion of a small abscess 1 of the puncture wounds. She is was deemed suitable for I&D under general anesthetic in the operating room. Moderate concern for joint sepsis. She was direct admit from the office and underwent p Right Hand Incision and Drainage(Right) by Justin Cole MD on 01-13-19. Surgery was without complications. 2 cultures were obtained 1 from the soft tissue superficial and the second from the ring finger metacarpal phalangeal joint. She was placed in a resting hand splint with bulky dressings. Patient admitted for IV antibiotic Unasyn 3000mg q 6hrs and pain control while awaiting culture results. On POD 1 Pain was much improved, afebrile, vital signs are stable, White count normal, Sed rate mildly elevated, C-reactive protein elevated at 3.4. Cultures show many polys, no bacteria, no growth to date either from the wound culture or joint culture. Dressing was changed, splint was removed, and the drain was pulled. POD 2 new IV was started. She had minimal complaints of pain. Vital signs stable, blood pressure satisfactory. Temperature 36.7. No growth she had on wound cultures. POD 3 She is afebrile. Her vital signs are stable. The ring finger joint culture is growing out Pasteurella multocida. The hand culture is no growth to date. Pain is markedly improved. There was mild erythema present with no drainage. She was able to tolerate touch her hand now whereas previously that was not possible. She was deemed stable for discharge. She has had almost 72 hours of intravenous antibiotics. Discharge home today on oral Augmentin. Follow up with Dr Cole in the office on 01-18-19 at 4pm. If there are any problems with fevers, increased pain, redness, swelling or any other problems or questions, she was instructed to call the office or go to the Emergency Room. She will be discharged on anti-inflammatory as well as narcotic. Wiggle the fingers. A new bulky hand dressing is applied, she is to elevate and wiggle her fingers. Breast reconstructive surgery is recommended to be delayed for at least 2 weeks. Total Time Total Time Spent Total Time Spent (In Minutes): 20minutes Discharge Plan Discharge Items Patient Disposition: Home - Self-Care Reason For Visit: CAT BITE RIGHT HAND SEPTIC Discharge Diagnosis: Cat Bite Right Hand Septic Discharge Goals: Decrease discomfort, Improve disease control, Improve function and Therapeutic intervention Activity: As commented below Lifting: No more than 5 pounds Bathing: Keep incision dry Bathing Comment: keep dressings on, clean, intact Exercise Comment: limited to avoid increase swelling or pain to right hand Driving/Machine Use Comment: cannot drive if taking narcotic Weightbearing Comment: limited weightbearing to right hand as tolerated Non-emergency contact: Surgeon Call non-emergency contact if: your pain is worsening, your temperature is above 101.5, your wound has increased redness and your wound has increased drainage Follow-up/Referrals: Justin Cole MD [Surgeon] - 01/18/19 4:00 pm (with Dr Cole) PCP,NO [Primary Care Provider] - Diet: Regular Addtl Provider Instructions: *Ice right hand at least 3xs a day for 20min or as needed for pain and swelling *Elevate right hand as much as possible for swelling *Wiggle fingers as tolerated to prevent stiffness *Ibuprofen 800mg 3xs a day for pain and swelling *Tylenol 1000mg 3xs a day for mild to moderate pain as adjunct to ibuprofen *Percocet for severe pain not controlled with the above *Augmentin 875mg twice a day with food for 7 days (refill provided if surgeon wants you to continue) *Follow-up with Dr Cole on Wednesday01-18-19 at 4pm. *Please call [phone] with any questions or concerns Prescriptions: New oxycodone-acetaminophen [Percocet] 5-325 mg Tablet 1 - 2 tab PO Q4H PRN (Reason: pain) Qty: 20 RF: 0 amoxicillin-pot clavulanate [Augmentin] 875-125 mg tablet 1 tab PO BID Qty: 14 RF: 1 Continued fluticasone propion-salmeterol [Advair Diskus] 500-50 mcg/dose blister with device 1 puffs INH BID PRN (Reason: asthma) Qty: 14 RF: 3 albuterol sulfate 90 mcg/actuation aerosol powdr breath activated 1 puffs INH .COMPLEX Qty: 1 RF: 3 albuterol sulfate 2.5 mg /3 mL (0.083 %) solution for nebulization 2.5 mg INH .COMPLEX PRN (Reason: shortness of breath or wheezing) Qty: 75 RF: 0 ascorbate calcium (vitamin C) 500 mg tablet 500 mg PO DAILY Qty: 30 RF: 0 loratadine [Claritin] 10 mg tablet 10 mg PO DAILY PRN (Reason: allergy symptoms) Qty: 30 RF: 0 clindamycin phosphate 1 % solution 1 appln TOP DAILY Qty: 30 RF: 0 gabapentin 300 mg capsule 300 mg PO TID Qty: 90 RF: 2 multivitamin [Daily Multi-Vitamin] tablet 1 tab PO DAILY Qty: 30 RF: 0 vitamin A 8,000 unit capsule 8,000 units PO DAILY RF: 0 bromelains 500 mg tablet 500 mg PO .COMPLEX RF: 0 amoxicillin-pot clavulanate [Augmentin] 875-125 mg tablet 1 tab PO Q12H Qty: 20 RF: 0 ipratropium-albuterol 0.5 mg-3 mg(2.5 mg base)/3 mL Solution For Nebulization 3 ml INHALATION QID PRN (Reason: Shortness Of Breath Or Wheezing) RF: 0 fexofenadine [Ryanne Allergy] 180 mg Tablet 180 mg PO DAILY PRN (Reason: Allergy Symptoms) RF: 0 methocarbamol 750 mg tablet 750 mg PO QPM PRN (Reason: Muscle Spasm) RF: 0 dextromethorphan-guaifenesin [Mucinex DM] 60-1,200 mg Tablet Extended Release 12 Hr 1 tab PO Q12H PRN (Reason: Cough) RF: 0 montelukast [Singulair] 10 mg Tablet 10 mg PO PM PRN (Reason: Allergy Symptoms) RF: 0 cholecalciferol (vitamin D3) 2,000 unit Tablet 2,000 unit PO QPM RF: 0 ibuprofen 800 mg tablet 800 mg PO Q8H PRN (Reason: pain) Qty: 30 RF: 0 mupirocin 2 % Ointment 1 applic TOPICAL BID RF: 0 Monistat 7 2 % (100 mg)- 2 % (9 gram) Comb Pack,Prefill Appl, Cream vaginal DAILY RF: 0 Discontinued sulfamethoxazole-trimethoprim [Bactrim DS] 800-160 mg Tablet 1 tab PO Q12H RF: 0 Stand-Alone Forms: [facility] Discharge Orders: Discharge Order (Routine); Ordered 01/16/19 Ordered By: Deanne Cronin Admission Data Admit Date/Time: 01/13/19 13:18 Attending Provider: Justin Cole Admit Provider: Justin Cole Primary Care Provider: PCP,NO Service: Medical Other Pending Studies at Discharge: No
[2019-01-16] MEDS: D5W AND 1/2NSS 1,000 ML IV SCH (12:57)
== END 2019-01-16 14:03 | disposition home or self-care (01) | DRG 603 ==
LOC: 3W 13:18
DX: L03.113 Cellulitis of right upper limb; Z88.0 Allergy status to penicillin; A28.0 Pasteurellosis; W55.01XA Bitten by cat, initial encounter; Z90.710 Acquired absence of both cervix and uterus; L02.511 Cutaneous abscess of right hand; Z88.1 Allergy status to other antibiotic agents